=== PATIENT | male | born 1930 | race Caucasian/White ===

== ENCOUNTER 2019-01-17 07:29 | Day surgery (SDC) | payer MEDICARE, BC ==
[~2019-01-17] VITALS: Ht 172.7 cm; Wt 71.8 kg
[2019-01-17] VITALS (16 sets, daily range): BP systolic 117–143; BP diastolic 48–77
[2019-01-17] MEDS ORDERED: normal saline 1000ml 1,000 ML IV SCH ×2 (08:05→09:39)
[2019-01-17] MEDS ORDERED: PRAV80TA3 PO (09:03)
[2019-01-17] MEDS ORDERED: ALEN70TA60 PO (09:03)
[2019-01-17] MEDS ORDERED: OMEP40CA37 PO (09:03)
[2019-01-17] MEDS ORDERED: FERR325T28 PO (09:03)
[2019-01-17] MEDS ORDERED: ABIR250T2 PEG (09:03)
[2019-01-17] MEDS ORDERED: AMLO-94 PO (09:03)
[2019-01-17] MEDS ORDERED: BERBERINE PO (09:03)
[2019-01-17] MEDS ORDERED: CYAN500T63 PO (09:03)
[2019-01-17] MEDS ORDERED: MULT-1074 PO (09:03)
[2019-01-17] MEDS ORDERED: CALC-965 PO (09:03)
[2019-01-17] MEDS ORDERED: METO50TA17 PO (09:03)
[2019-01-17] MEDS ORDERED: MAGN400C3 PO (09:03)
[2019-01-17] MEDS ORDERED: INDO50CA14 PO (09:03)
[2019-01-17] MEDS ORDERED: UBIQ100C3 PO (09:03)
[2019-01-17] MEDS ORDERED: ASPI-611 PO (09:03)
[2019-01-17] MEDS ORDERED: CHOL400T32 PO (09:03)
[2019-01-17] MEDS ORDERED: PRED5TAB PO (09:03)
[2019-01-17 09:06] LABS: BASOPHILS % (AUTO) 0.3 % (0-1); EOSINOPHILS # (AUTO) 0.1 X10'3 (0-0.9); HEMATOCRIT 23.4 % (42.0-52.0); HEMOGLOBIN 7.6 g/dl (14.0-17.9); LYMPHOCYTES # (AUTO) 0.7 X10'3 (1.1-4.8); LYMPHOCYTES % (AUTO) 9.7 % (21-51); MEAN CORPUSCULAR HEMOGLOBIN 27.4 PG (27.0-31.0); MEAN CORPUSCULAR HGB CONC 32.5 g/dL (33.0-36.5); MEAN CORPUSCULAR VOLUME 84.2 FL (78-98); MEAN PLATELET VOLUME 6.9 FL (7.4-10.4); MONOCYTES % (AUTO) 12.8 % (2-12); NEUTROPHILS # (AUTO) 5.8 X10'3 (1.8-7.7); NEUTROPHILS % (AUTO) 76.2 % (42-75); PLATELET COUNT 311 X10'3 (140-440); RED BLOOD COUNT 2.78 X10'6 (4.70-6.10); RED CELL DISTRIBUTION WIDTH 19.6 % (11.5-14.5); WHITE BLOOD COUNT 7.6 X10'3 (4.5-11.0)
[2019-01-17 09:25] LABS: ANION GAP 6 (8-16); CHLORIDE 104 MMOL/L (99-107); GLUCOSE 106 MG/DL (70-104); POTASSIUM 3.6 MMOL/L (3.5-5.1); SODIUM 140 MMOL/L (135-145); TOTAL CARBON DIOXIDE 29.7 MMOL/L (24-32)
[2019-01-17 09:26] LABS: ALBUMIN 2.6 G/DL (3.4-5.0); BLOOD UREA NITROGEN 17 MG/DL (7-18); CALCIUM 8.8 MG/DL (8.5-10.1); CREATININE 0.85 MG/DL (0.60-1.10); eGFR 85 ML/MIN
[2019-01-17 09:54] LABS: ANISOCYTOSIS 2+; PLATELET ESTIMATE NORMAL
[2019-01-17] MEDS ORDERED: fentaNYL/PF 50MCG/1 ML 2ML syringe ONE (09:59)
[2019-01-17] MEDS ORDERED: midazolam 2 mg/2 ml injection ONE (09:59)
== END 2019-01-17 14:40 | disposition home or self-care (01) ==
LOC: SSTAY O 07:29
PROVIDERS: ATTEND Radiology Diagnostic Radiology
DX: C78.7 Secondary malignant neoplasm of liver and intrahepatic bile duct (principal); C61 Malignant neoplasm of prostate; I25.10 Atherosclerotic heart disease of native coronary artery without angina pectoris; E11.9 Type 2 diabetes mellitus without complications; M19.90 Unspecified osteoarthritis, unspecified site; I10 Essential (primary) hypertension; K21.9 Gastro-esophageal reflux disease without esophagitis; M10.9 Gout, unspecified; G47.30 Sleep apnea, unspecified; M81.0 Age-related osteoporosis without current pathological fracture; Z98.890 Other specified postprocedural states; Z79.82 Long term (current) use of aspirin; Z79.899 Other long term (current) drug therapy; Z91.040 Latex allergy status; Z88.8 Allergy status to other drugs, medicaments and biological substances; Z95.1 Presence of aortocoronary bypass graft; Z85.828 Personal history of other malignant neoplasm of skin; Z98.49 Cataract extraction status, unspecified eye
CPT/HCPCS: 36415; 47000; 76942; 80048; 85025; 85610; J2250; J3010; J7030; 99152; 99153